=== PATIENT | female | born 1975 | race Caucasian/White ===

== ENCOUNTER 2020-06-17 13:18 | Outpatient (CLI) | payer OTHER, SELFPAY ==
--- NOTE | 2020-06-17 13:23 | ECG_ITS ---
Measurements Intervals [place] Rate: 75 P: 21 FL: 117 QRS: 42 QRSD: 97 T: 38 QT: 371 QTc: 417 Interpretive Statements SINUS RHYTHM WITH SHORT FL INTERVAL INCOMPLETE RIGHT BUNDLE BRANCH BLOCK DELAYED PRECORDIAL R/S TRANSITION BASELINE ARTIFACT- I, II, AVR, AVL BORDERLINE ECG Electronically Signed On 06-17-2020 15:43:10 FOOD AND DRUG RESEARCH SCIENTIST by Joni Cifuentes D.O.
[2020-06-17 13:49] LABS: Hematocrit 40.6 % (37.0-47.0); Hemoglobin 13.2 g/dL (12.0-15.0)
== END 2020-06-17 13:19 | disposition home or self-care (01) ==
LOC: ANHSURGERY 13:23
PROVIDERS: Anesthesiology; PCP Internal Medicine; Visit Provider Podiatrist Foot & Ankle Surgery
DX: Z01.818 Encounter for other preprocedural examination (principal); D64.9 Anemia, unspecified
CPT/HCPCS: 36415; 85014; 85018; 93005

== ENCOUNTER 2020-06-20 01:07 | Outpatient (CLI) | payer OTHER, SELFPAY ==
[2020-06-21 14:16] LABS: SARS-CoV-2 RNA PCR Negative
== END 2020-06-20 01:08 | disposition home or self-care (01) ==
LOC: ANHCOVIDDT 01:07
PROVIDERS: PCP Internal Medicine; Visit Provider Podiatrist Foot & Ankle Surgery
DX: Z01.818 Encounter for other preprocedural examination (principal); Z20.828 Contact with and (suspected) exposure to other viral communicable diseases
CPT/HCPCS: 87635; C9803; U0003

== ENCOUNTER 2020-06-23 00:52 | Day surgery (SDC) | payer OTHER, SELFPAY ==
[2020-06-15 12:17] VITALS: BMI 27.8
--- NOTE | 2020-06-23 08:26 | WPDANESEPPF ---
Anes - Initial Pre Proc Eval Procedure: Operation Date: 06/23/20 14:00 Proposed Procedures p Edy Flody Bunionectomy Right Foot - Champ Kenny DPM Date/Time: 06/23/20 08:26 Surgeon: Champ Kenny DPM Pre Op Diagnosis: Bunion Right Foot Patient Data Age: 45 Gender: F Height: 1.66 m Weight: 77.15 kg Allergies Allergy/AdvReac Type Severity Reaction Status Date / Time pseudoephedrine Allergy Severe Hives Verified 06/23/20 12:47 [From Actifed] Sulfa (Sulfonamide Allergy Severe RASH/HIVES Verified 06/23/20 12:47 Antibiotics) triprolidine [From Actifed] Allergy Severe Hives Verified 06/23/20 12:47 tramadol AdvReac Mild Itching Verified 06/23/20 12:47 PSEUDOEPHEDRINE HCL Allergy Intermediate PALPATATION Uncoded 06/23/20 12:47 S Home Medications Medication Instructions Recorded Confirmed Type Complete Multivitamin 1 tablet PO DAILY 06/15/20 06/23/20 History Probiotic 10,000 mmu cells PO DAILY 06/15/20 06/23/20 History baclofen 10 mg PO PRN PRN 06/15/20 06/23/20 History carvedilol 12.5 mg PO BID 06/15/20 06/23/20 History cetirizine [Zyrtec] 10 mg PO DAILY 06/15/20 06/23/20 History ferrous sulfate 325 mg PO QAM 06/15/20 06/23/20 History fluticasone propionate [Flonase 2 spray INTRANASAL DAILY 06/15/20 06/23/20 History Allergy Relief] ibuprofen 400 mg PO PRN PRN 06/15/20 06/23/20 History lorazepam 1 mg PO PRN PRN 06/15/20 06/23/20 History losartan 50 mg PO QAM 06/15/20 06/23/20 History omeprazole magnesium [Prilosec OTC] 40 mg PO DAILY 06/15/20 06/23/20 History Patient hx anesthesia problems: none Family hx anesthesia problems: none PMFSH Past Medical History Medical History (Updated 06/23/20 @ 13:05 by Vincent Powell DO) Anemia Anxiety Asthma mild GERD (gastroesophageal reflux disease) Hypertension Social History Social History Smoking status: Never smoker Alcohol intake: current Drinks per week: 2 Alcohol use details: WINE Living arrangements: with family Spiritual care concerns: No Anes - Eval Final PreProcedure Day of Procedure 06/23/20 08:26 Patient weight: overweight Heart: regular rate and rhythm Lungs: clear to auscultation and normal air movement Airway: Mallampati scale class II Neurological: alert and oriented Last oral intake: >/= 8 hours ASA classification: III Emergent: no Anesthetic plan: proceed Anesthesia type and monitoring: general GIVS and standard monitoring Informed Consent: The patient's anesthetic plan and its attendant risks and benefits were discussed with the patient/family/POA. Questions were solicited and answers provided to the satisfaction of the patient/family/POA.
[2020-06-23 12:08] VITALS: BP 151/84; PULSE 74; RESP 20; TEMP 37.1; O2SAT 100
[2020-06-23] MEDS: LACTATED RINGERS 1,000 ML 30 ML IV CONT (13:00)
--- NOTE | 2020-06-23 13:45 | WPDHPUPDATE1 ---
History and Physical Update Update Date/Time: 06/23/20 13:45 History and Physical has been reviewed, including an updated exam of the patient. There are NO changes in the patient's condition. Risks, benefits, and alternatives have been discussed and questions answered. Patient agrees to proceed with procedure.
--- NOTE | 2020-06-23 13:52 | SUR.PREOP ---
1345-PT UP TO VOID.
[2020-06-23] MEDS: BUPIVACAINE HCL 0.5% PF 30 ML VIAL 5 ML INFILTRATE (14:21)
[2020-06-23] MEDS: LIDOCAINE HCL 2% LOCAL INJ 20 ML VIAL 5 ML INFILTRATE (14:22)
[2020-06-23 14:54] VITALS: BP 130/83; PULSE 87; RESP 16; O2SAT 100
[2020-06-23 15:20] VITALS: BP 138/83; PULSE 70; RESP 16
[2020-06-23] MEDS: oxyCODONE HCL (*CRX) 5 MG TAB IR PO (15:20)
--- NOTE | 2020-06-23 15:41 | SUR.PHASEII ---
1515 DR CHRISTIANSON AWARE HE DIDN'T SIGN HYDROCODONE PRESCRIPTION. STATES TO HAVE PATIENTS SPOUSE STOP BY [facility] OFFICE AND HE WILL SIGN PRESCRIPTION.
[2020-06-23 15:50] VITALS: BP 142/84; PULSE 72; RESP 16
--- NOTE | 2020-06-26 09:51 | P.OP_ITS ---
Procedure Note - Detailed Date of procedure: 06/23/20 Pre-op diagnosis: Bunion Right Foot Hallux valgus right foot Post-op diagnosis: same Procedure performed: Edy bunionectomy. Description of procedure: The patient was brought to the operating room and placed in the supine position upon the surgical table at which time the aforementioned local anesthetic agents were given followed by sterile prep and wrapped in the usual fashion. After ascertaining adequate anesthesia had been obtained a dorsal linear incision was created over the 1st metatarsophalangeal joints dorsal medial aspect approximately 5 cm in length. The incision was deepened in the same plane with careful attention paid to all bleeders which were either clamped bovied or ligated as necessary. Next a periosteal capsular incision was created along the entire length of the original skin incision. All periosteal capsular and collateral ligaments tissues were freed from about the head of the 1st metatarsal thus revealing a hypertrophied medial eminence which was resected flush with the remaining shaft of the 1st metatarsal utilizing an oscillating saw. A v-shaped osteotomy in the transverse plane with the wings at 60? to 1 an other and the apex of the V shaped osteotomy placed distally was performed. The capital fragment was then moved laterally and reamed packed upon the 1st metatarsal shaft. A 0.45 in K-wire was then inserted from dorsal medial to plantar lateral. Excellent correction of the deformity was noted at this time and the excess K-wire was then removed flush with the remaining shaft of the 1st metatarsal. Any remaining bony spicules were then removed and the wound was flushed with copious amounts of sterile saline. The periosteal capsular incision was closed with a continuous running suture of 3 0 Vicryl. The subcutaneous tissues were closed utilizing horizontal mattress fashion sutures of 4 0 Vicryl. The skin was closed with a continuous running suture of 5 0 Vicryl. After deflation of the pneumatic tourniquet normal capillary fill time and color returned to all digits of the right foot. The wound was dressed with sterile Adaptic sterile 4x4s and sterile Ashley in a compressive type fashion. The aforementioned procedure took place under sterile technique and no times are breaking her sterile field. The patient tolerated the anesthesia and procedure well and left the operating r oom with vital signs stable vascular status intact and in apparent satisfactory postoperative condition. After brief period of observation in the postanesthesia room the patient was discharged to home with the following instructions. 1. Wear Cam boot at all times while bearing weight. Limit activity to bathroom privileges only. 2. Resume regular home diet and home medications. 3. Called Dr. Kenny at [phone] or [phone] if any questions problems or emergencies arise whatsoever and to schedule followup examination. Implants: .045 threaded k-wire. Anesthesia: MAC Surgeon: Chapm Kenny DPM Estimated blood loss (mL): 3 Drains: No Packing: No Pathology: none sent Complications: No immediate complications Condition: stable Disposition: PACU
== END 2020-06-23 16:00 | disposition home or self-care (01) ==
PROVIDERS: PCP Internal Medicine; Visit Provider Podiatrist Foot & Ankle Surgery
PROC: (CPT 28299; principal; 2020-06-23 14:00)
DX: M20.11 Hallux valgus (acquired), right foot (principal); J45.909 Unspecified asthma, uncomplicated; I10 Essential (primary) hypertension; K21.9 Gastro-esophageal reflux disease without esophagitis; D64.9 Anemia, unspecified; F41.9 Anxiety disorder, unspecified
CPT/HCPCS: 28296; A9270; J1100; J2250; J2704; J3010; J7120

== ENCOUNTER → 2020-12-10 09:22 | Outpatient (CLI) | payer OTHER, SELFPAY ==
--- NOTE | ~2020-12-10 | XR_ITS ---
XR_[id number]_CR DATE: 12/10/2020 10:38 INDICATION: Left-sided chest pain TECHNIQUE: PA chest. 3 views of the left ribs. COMPARISON: None FINDINGS: The left first rib is absent. No left rib fracture or bone destruction is evident. Normal heart size. No hilar or mediastinal enlargement. No pulmonary infiltrate or consolidation, ple ural effusion or pulmonary vascular congestion or pneumothorax. IMPRESSION: No evidence of left rib fracture Absent left first rib Reviewed, dictated and finalized at [facility]. Reviewed, dictated and finalized at [facility].
== END ==
PROVIDERS: PCP Internal Medicine; Visit Provider Internal Medicine
DX: R07.9 Chest pain, unspecified (principal)
CPT/HCPCS: 71101

== ENCOUNTER → 2021-07-22 10:16 | Outpatient (CLI) | payer OTHER, SELFPAY ==
--- NOTE | ~2021-07-22 | US_ITS ---
EXAMINATION: US pelvic complete w TV DATE: 07/22/2021 10:52 INDICATION: Abnormal uterine bleeding. Right lower quadrant pain. Comparison:No prior studies for comparison. TECHNIQUE: Multiple transabdominal and endovaginal sonographic images of the pelvis performed. FINDINGS: The uterus measures 7.9 x 3.4 x 4.6 cm. The endometrial complex measures 5 mm. The right ovary measures 2.9 x 2.6 x 4.9 cm and the left ovary is not visualized. There is a 4 cm sim ple cyst of the right ovary. Normal doppler signal in the right ovaries. There is no free fluid in the pelvis. There are no abnormal masses seen on either side. IMPRESSION: 1. Simple right ovarian cyst measuring 4 cm. Reviewed, dictated and finalized at location [facility]. GER ACUTE
== END ==
PROVIDERS: PCP Internal Medicine; Visit Provider Nurse Practitioner Women's Health
DX: N83.201 Unspecified ovarian cyst, right side (principal)
CPT/HCPCS: 76830; 76856

== ENCOUNTER → 2021-08-27 09:03 | Outpatient (CLI) | payer OTHER, SELFPAY ==
--- NOTE | ~2021-08-27 | US_ITS ---
EXAMINATION: US pelvic complete w TV DATE: 08/27/2021 09:35 INDICATION: Follow-up ovarian cyst Comparison:Ultrasound dated 07/22/2021 TECHNIQUE: Multiple transabdominal and endovaginal sonographic images of the pelvis performed. FINDINGS: The uterus measures 8.8 x 3.5 x 4.8 cm. The endometrial complex measures 8 mm. The right ovary measures 2.2 x 2.1 x 1.5 cm and the left ovary is not visualized. There are small fol licles in each ovary. Normal doppler signal in both ovaries. There is no free fluid in the pelvis. There are no abnormal masses seen on either side. IMPRESSION: 1. Unremarkable pelvic ultrasound. Reviewed, dictated and finalized at location [facility]. 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
== END ==
PROVIDERS: PCP Internal Medicine; Visit Provider Nurse Practitioner Women's Health
DX: N83.201 Unspecified ovarian cyst, right side (principal)
CPT/HCPCS: 76830; 76856

== ENCOUNTER → 2021-08-27 09:05 | Outpatient (CLI) | payer OTHER, SELFPAY ==
--- NOTE | ~2021-08-27 | XR_ITS ---
EXAMINATION: XR chest 2V 08/27/2021 10:18 INDICATION: Preop PROCEDURE: 2 view chest COMPARISON: 03/22/2016 FINDINGS: The lungs are clear. The cardiomediastinal silhouette is within normal limits. There are no pleural effusions. There is no pneumothorax suspected. IMPRESSION: 1: NO ACUTE CARDIOPULMONARY DISEASE. Reviewed, dictated and finalized at location [facility]. 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
== END ==
DX: Z01.812 Encounter for preprocedural laboratory examination (principal)
CPT/HCPCS: 71046

== ENCOUNTER 2022-12-09 02:34 | Day surgery (SDC) | payer BC, SELFPAY ==
[2022-11-25 15:52] VITALS: BMI 31.6
--- NOTE | 2022-12-08 17:02 | P.HP_ITS ---
History of Present Illness History of Present Illness Consent: Risks, benefits, and alternatives have been discussed and questions answered. Patient agrees to proceed with procedure. Chief complaint: epigastric pain Narrative: Lamar Branham is a 47 year old female who recently began having discomfort in the epigastric area.? It can last all day.? It is at times intense.? In fact it can take away her appetite.? She has not however lost weight.? she has gai mark weight since she had foot surgery few months ago because of inactivity.? The pain does not radiate from the epigastric area.? She had studies done recently including an ultrasound and HIDA scan both of which were unremarkable.? She has been on omeprazole for many years for heartburn. Review of Systems Review of Systems: All systems reviewed & are unremarkable except as noted in HPI and below PMFSH Past Medical History Medical History Anemia Anxiety Asthma mild GERD (gastroesophageal reflux disease) Hypertension Social History Social History Smoking status: Never smoker Alcohol intake: current Drinks per week: 2 Alcohol use details: once a week Substance use: never Substance use type: does not use Living arrangements: with family Spiritual care concerns: No Meds Home Medications and Allergies Home Medications Medication Instructions Recorded Confirmed Type carvedilol 25 mg tablet 12.5 mg PO BID 06/15/20 11/25/22 History cetirizine 10 mg tablet (Zyrtec) 10 mg PO DAILY 06/15/20 11/25/22 History fluticasone propionate 50 2 spray intranasal DAILY 06/15/20 11/25/22 History mcg/actuation nasal spray,suspension (Flonase Allergy Relief) lorazepam 1 mg tablet 1 mg PO PRN PRN Anxiety 06/15/20 11/25/22 History losartan 50 mg tablet 50 mg PO QAM 06/15/20 11/25/22 History multivitamin,[id number] 1 tablet PO DAILY 06/15/20 11/25/22 History (Complete Multivitamin tablet) omeprazole magnesium 20 mg 40 mg PO DAILY 06/15/20 11/25/22 History tablet,delayed release (Prilosec OTC) fluoxetine 20 mg capsule 20 mg PO DAILY 11/08/22 11/25/22 History Allergies Allergy/AdvReac Type Severity Reaction Status Date / Time pseudoephedrine Allergy Severe Hives Verified 12/09/22 06:29 [From Actifed] Sulfa (Sulfonamide Allergy Severe RASH/HIVES Verified 12/09/22 06:29 Antibiotics) tramadol AdvReac Mild Itching Verified 12/09/22 06:29 Exam Const: General: alert Orientation/consciousness: patient oriented x3 Resp: Auscultation: clear to auscultation bilaterally Cardio: Rhythm: regular rhythm GI: GI Palp: Yes Soft to palpation and No Tenderness to palpation present (GI) Neuro: General: patient oriented x3 Assessment and Plan Assessment and plan (1) Epigastric pain: Code(s): R10.13 - Epigastric pain Status: Acute Assessment and Plan: EGD with possible biopsy or dilatation or cautery.
[2022-12-09 06:33] VITALS: BP 154/91; PULSE 87; RESP 18; TEMP 36.2; O2SAT 100
[2022-12-09] MEDS: LACTATED RINGERS 1,000 ML 150 ML IV CONT (06:54)
--- NOTE | 2022-12-09 07:04 | P.PNAN_ITS ---
Anes - Initial Pre Proc Eval Procedure: Operation Date: 12/09/22 07:30 Proposed Procedures p Esophagogastroduodenoscopy - Yassine Kent MD Date/Time: 12/09/22 07:04 Surgeon: Yassine Kent MD Pre Op Diagnosis: epigastric pain Patient Data Age: 47 Gender: F Height: 1.65 m Weight: 85.4 kg Last Vital Signs Temp 36.2 C L 12/09/22 06:33 Pulse 87 12/09/22 06:33 Resp 18 12/09/22 06:33 BP 154/91 H 12/09/22 06:33 Pulse Ox 100 12/09/22 06:33 O2 Del Method Room Air 12/09/22 06:33 Allergies Allergy/AdvReac Type Severity Reaction Status Date / Time pseudoephedrine Allergy Severe Hives Verified 12/09/22 06:29 [From Actifed] Sulfa (Sulfonamide Allergy Severe RASH/HIVES Verified 12/09/22 06:29 Antibiotics) tramadol AdvReac Mild Itching Verified 12/09/22 06:29 Home Medications Medication Instructions Recorded Confirmed Type carvedilol 25 mg tablet 12.5 mg PO BID 06/15/20 11/25/22 History cetirizine 10 mg tablet (Zyrtec) 10 mg PO DAILY 06/15/20 11/25/22 History fluticasone propionate 50 2 spray intranasal DAILY 06/15/20 11/25/22 History mcg/actuation nasal spray,suspension (Flonase Allergy Relief) lorazepam 1 mg tablet 1 mg PO PRN PRN Anxiety 06/15/20 11/25/22 History losartan 50 mg tablet 50 mg PO QAM 06/15/20 11/25/22 History multivitamin,mp-pmto-[id number] 1 tablet PO DAILY 06/15/20 11/25/22 History (Complete Multivitamin tablet) omeprazole magnesium 20 mg 40 mg PO DAILY 06/15/20 11/25/22 History tablet,delayed release (Prilosec OTC) fluoxetine 20 mg capsule 20 mg PO DAILY 11/08/22 11/25/22 History Patient hx anesthesia problems: none Family hx anesthesia problems: none Results Review: All pre-operative results and documents have been reviewed as part of the pre- operative evaluation. [facility] Past Medical History Medical History Anemia Anxiety Asthma mild GERD (gastroesophageal reflux disease) Hypertension Social History Social History Smoking status: Never smoker Alcohol intake: current Drinks per week: 2 Alcohol use details: once a week Substance use: never Substance use type: does not use Living arrangements: with family Spiritual care concerns: No Anes - Eval Final PreProcedure Day of Procedure 12/09/22 07:04 Patient weight: obese Heart: regular rate and rhythm Lungs: clear to auscultation and normal air movement Airway: Mallampati scale class II Neurological: alert and oriented Last oral intake: >/= 8 hours ASA classification: III Emergent: no Anesthetic plan: proceed Anesthesia type and monitoring: general GIVS and standard monitoring Results Review: All pre-operative results and documents have been reviewed as part of the pre- operative evaluation. Informed Consent: The patient's anesthetic plan and its attendant risks and benefits were discussed with the patient/family/POA. Questions were solicited and answers provided to the satisfaction of the patient/family/POA.
[2022-12-09 07:37] VITALS: BP 153/86; PULSE 96; RESP 18; O2SAT 99
[2022-12-09 07:47] VITALS: BP 143/81; PULSE 85; RESP 20; O2SAT 100
[2022-12-09 07:57] VITALS: BP 157/95; PULSE 82; RESP 20; O2SAT 99
== END 2022-12-09 08:09 | disposition home or self-care (01) ==
PROVIDERS: PCP Internal Medicine; Visit Provider Internal Medicine Gastroenterology
PROC: 0DJ08ZZ Inspection of Upper Intestinal Tract, Via Natural or Artificial Opening Endoscopic (ICD-10-PCS; CPT 43235; principal; 2022-12-09 07:30)
DX: K21.9 Gastro-esophageal reflux disease without esophagitis (principal); I10 Essential (primary) hypertension; F41.9 Anxiety disorder, unspecified; E66.9 Obesity, unspecified; Z68.31 Body mass index [BMI] 31.0-31.9, adult
CPT/HCPCS: 43239; 87081; 88305; J2704; J7120

== ENCOUNTER 2023-08-09 12:19 | Outpatient (CLI) | payer OTHER, SELFPAY ==
--- NOTE | ~2023-08-09 | XR_ITS ---
Thoracic spine: Clinical Indication: Back pain AP and lateral views were performed. No fracture is seen. There is normal alignment of the vertebrae. The intervertebral disc spaces appe ar normal. Paravertebral soft tissues appear normal. Impression: No significant abnormalities noted. Reviewed, dictated and finalized at [facility]. 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
--- NOTE | ~2023-08-09 | XR_ITS ---
Lumbosacral Spine: AP and lateral views Clinical History: Pain Findings: The normal lordotic curve is maintained. The vertebral bodies and posterior elements are i ntact. The intervertebral disc spaces are preserved. The sacroiliac joints are normally outlined. Impression: No significant abnormality. Reviewed, dictated and finalized at [facility]. 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
== END 2023-08-09 12:20 ==
PROVIDERS: PCP Internal Medicine; Visit Provider Internal Medicine
DX: M54.6 Pain in thoracic spine (principal); M54.50 Low back pain, unspecified
CPT/HCPCS: 72070; 72100

== ENCOUNTER 2024-01-23 16:15 | Outpatient (CLI) | payer OTHER, SELFPAY ==
--- NOTE | ~2024-01-23 | XR_ITS ---
Right wrist Technique: PA, oblique, lateral, and ulnar deviation views were obtained. Clinical History: Sprain Findings: No acute fracture or dislocation is seen. Osseous alignment is anatomic. Joint spaces are p reserved. Soft tissues are unremarkable. Impression: Unremarkable right wrist radiographs. Reviewed, dictated and finalized at location . Impression: Unremarkable right wrist radiographs.
== END 2024-01-23 16:16 | disposition home or self-care (01) ==
LOC: ANHIMG 16:16
PROVIDERS: PCP Internal Medicine; Visit Provider Plastic Surgery
DX: S63.501A Unspecified sprain of right wrist, initial encounter (principal); X58.XXXA Exposure to other specified factors, initial encounter
CPT/HCPCS: 73110

== ENCOUNTER 2024-02-16 08:01 | Outpatient (CLI) | payer OTHER, SELFPAY ==
--- NOTE | ~2024-02-16 | MR_ITS ---
MRI of the right wrist CLINICAL HISTORY: Sprain, lump TECHNIQUE: Axial T1-weighted, T1 fat-sat, T2 fat-sat images, coronal T1-weighted and T2 fat-sat image s, and sagittal T1-weighted, T2 fat-sat, and proton-density images were performed. Following intraven ous administration of 18 cc MultiHance gadolinium, T1-weighted fat-sat imaging was performed in the a xial, coronal, and sagittal planes. FINDINGS: Scapholunate ligament is intact, and there is no widening of the scapholunate interval. Jason otriquetral ligament also appears intact. Central articular disc of the TFCC is intact. There is an 8 mm ganglion cyst along the volar aspect of the distal radius (sagittal T2 fat-sat image s 13, coronal T2 fat-sat image 10). There is a 10 mm ganglion cyst just dorsal to the capitate, just deep to the third extensor compartment tendons (coronal T2 fat-sat image 4). There is a distal radial ulnar joint effusion. No other soft tissue mass or fluid collection evident. Bone marrow signals are unremarkable. Probable minimal degenerative change of the radiocarpal articul ation. Flexor tendons and carpal tunnel are unremarkable. Extensor tendons themselves are intact. IMPRESSION: 8 mm ganglion cyst along the volar aspect of the distal radius. 10 mm ganglion cyst just dorsal to the capitate, deep to the third extensor compartment tendons. DRUJ effusion. Mild degenerative change, as above. Reviewed, dictated and finalized at [facility]. IMPRESSION: 8 mm ganglion cyst along the volar aspect of the distal radius. 10 mm ganglion cyst just dorsal to the capitate, deep to the third extensor com partment tendons. DRUJ effusion. Mild degenerative change, as above.
== END 2024-02-16 08:02 ==
LOC: MICIMG 08:02
PROVIDERS: PCP Internal Medicine; Visit Provider Plastic Surgery
DX: S63.501A Unspecified sprain of right wrist, initial encounter (principal); X58.XXXA Exposure to other specified factors, initial encounter; M19.031 Primary osteoarthritis, right wrist
CPT/HCPCS: 73223; A9577